=== PATIENT | male | born 1950 | race Caucasian/White ===

== ENCOUNTER 2020-11-08 13:22 | Emergency (ER) | payer MEDICARE, OTHER ==
--- NOTE | 2020-11-08 14:40 | EDM.PDOC ---
ED HPI GENERAL MEDICAL PROBLEM - General Chief Complaint: General Stated Complaint: FLUID IN LEFT KNEE Time Seen by Provider: 11/08/20 13:48 Source of Information: Reports: Patient History Limitations: Reports: No Limitations - History of Present Illness INITIAL COMMENTS - FREE TEXT/NARRATIVE: 70-year-old male presents to the ED complaining of swelling in his left knee. Pertinent medical history patient has been seen for the same after a traumatic fall approximately 1 to 2 months ago. Approximately 3 weeks ago patient had what he estimates as 1 cup of fluid drained from his knee by orthopedics. Today patient has no pain, no disability, no change in gait, change in stability, or any other complaint except aesthetics and fear of his knee becoming even further enlarged with edema. Patient denies chest pain, shortness of breath, syncope, or signs of infection. Onset: Gradual Duration: Week(s): Location: Reports: Lower Extremity, Left Improves with: Reports: Other (Compression) Worsens with: Reports: Other (Inactivity/sleeping) Associated Symptoms: Reports: No Other Symptoms - Related Data Allergies Allergy/AdvReac Type Severity Reaction Status Date / Time amoxicillin Allergy Hives Verified 11/08/20 13:56 Home Meds: Home Meds Apixaban [Eliquis] 5 mg PO 11/08/20 [History] Sertraline [Zoloft] 50 mg PO DAILY 11/08/20 [History] Tamsulosin [Flomax] 11/08/20 [History] amLODIPine [Norvasc] 11/08/20 [History] Past Medical History Other HEENT History: wears glasses Cardiovascular History: Reports: Afib ED ROS GENERAL - Review of Systems Review Of Systems: Comprehensive ROS is negative, except as noted in HPI. Constitutional: Reports: No Symptoms HEENT: Reports: No Symptoms Respiratory: Reports: No Symptoms Cardiovascular: Reports: No Symptoms Endocrine: Reports: No Symptoms GI/Abdominal: Reports: No Symptoms : Reports: No Symptoms Musculoskeletal: Reports: No Symptoms Skin: Reports: No Symptoms Neurological: Reports: No Symptoms Psychiatric: Reports: No Symptoms Hematologic/Lymphatic: Reports: No Symptoms Immunologic: Reports: No Symptoms ED EXAM, GENERAL - Physical Exam Exam: See Below Free Text/Narrative:: Six 10-year-old male presents to the ED sitting on the stretcher. He is alert and oriented 3/3 GCS 4 5 6 skin is pink warm and dry, no apparent distress, speaking in full sentences. Focused exam left knee and lower leg. Patient has full range of motion without pain, without tenderness, no open sores, no pedal edema, CMS is intact below the site of edema. Left knee has a nonfluctuant amount of fluid that is freely palpable, without any heat, erythema, or te nderness. Exam Limited By: No Limitations General Appearance: Alert, WD/WN, No Apparent Distress Respiratory/Chest: No Respiratory Distress, Lungs Clear, Normal Breath Sounds, No Accessory Muscle Use, Chest Non-Tender Cardiovascular: Normal Peripheral Pulses, Regular Rate, Rhythm, No Edema, No Gallop, No JVD, No Murmur, No Rub Skin Exam: Warm, Dry, Intact, Normal Color, No Rash Course - Vital Signs Last Recorded V/S: Last Vital Signs Temp 98.0 F 11/08/20 13:48 Pulse 97 11/08/20 13:48 Resp 16 11/08/20 13:48 BP 137/93 H 11/08/20 13:48 Pulse Ox 97 11/08/20 13:48 - Orders/Labs/Meds Orders: Active Orders 24 hr Category Date Time Status Knee 3V Lt [CR] Stat Exams 11/08/20 14:07 Ordered Departure - Departure Time of Disposition: 15:00 Disposition: Home, Self-Care 01 Condition: Good Clinical Impression: Effusion of bursa of left knee - Discharge Information *PRESCRIPTION DRUG MONITORING PROGRAM REVIEWED*: No *COPY OF PRESCRIPTION DRUG MONITORING REPORT IN PATIENT ELENA: No Instructions: Knee Effusion, [id number] Referrals: PCP,None [Primary Care Provider] - Sepsis Event Note (ED) - Focused Exam Vital Signs: Vital Signs Temp Pulse Resp BP Pulse Ox 11/08/20 13:48 98.0 F 97 16 137/93 H 97 - Assessment/Plan Assessment:: Assessment and plan: History, exam, x-ray 3 view of the left knee (negative for any orthopedic joint injury), after discussing indications for tapping the patient's knee as he had indicated was his wish for coming to the ED, patient u nderstood that it was not clinically indicated at this time. After consultation with physical therapy and Dr. Bar it was agreed to continue compression therapy, encouraged continued activity, and no further indication for medical treatment was necessary at this time. Patient advised to follow-up with primary care and/or orthopedics when he gets back home. Patient advised to return to ED if he has initiation of pain, disability, changing gait.
--- NOTE | 2020-11-09 08:19 | CR ---
Date of Service: 11/08/20 Clinical Data: fluid on knee LEFT KNEE: There is prominent soft tissue swelling anterior to the patella suggesting prepatellar bursitis. 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 No acute fracture or dislocation. Minimal joint effusion. No other significant findings. [id number] [facility]
== END 2020-11-08 14:55 | disposition home or self-care (01) ==
LOC: LB.ED 13:22
DX: M25.462 Effusion, left knee (principal); I48.91 Unspecified atrial fibrillation; Z88.0 Allergy status to penicillin; Z79.01 Long term (current) use of anticoagulants
CPT/HCPCS: 73562-LT; 99283-25